=== PATIENT | male | born 2005 | race Caucasian/White ===

== ENCOUNTER 2025-04-28 09:48 | Emergency (ER) | payer OTHER ==
[~2025-04-28] VITALS: Ht 185.4 cm; Wt 75.7 kg
[2025-04-28] MEDS ORDERED: IBUP600T42 PO (10:22)
[2025-04-28] MEDS ORDERED: ACET-683 PO (10:22)
[2025-04-28] MEDS ORDERED: PRED10TA2 PO (11:07)
[2025-04-28] MEDS ORDERED: HYDR-3363 PO (11:07)
[2025-04-28 11:14] VITALS: BP 111/53; TEMP 97.6; O2SAT 100
== END 2025-04-28 11:21 | disposition home or self-care (01) ==
LOC: M ED 09:48
DX: L25.9 Unspecified contact dermatitis, unspecified cause (principal)